=== PATIENT | female | born 1995 | race Caucasian/White ===

== ENCOUNTER 2016-07-13 13:51 | Emergency (ER) | payer OTHER ==
[2016-07-13 14:18] LABS: BILIRUBIN,URINE NEGATIVE (NEGATIVE); PH,URINE 5.5 PH (5.0-7.5)
[2016-07-13 14:25] LABS: UA w/ MICROSCOPIC CHARGE YES
[2016-07-13 14:26] LABS: HCG UR QUAL NEGATIVE
[2016-07-13 14:39] LABS: UR CULTURE IF IND NOT INDICATED; WBC,URINE 0-3 /HPF (0-5)
--- NOTE | 2016-07-13 14:43 | ED Physician Documentation ---
PD HPI FEMALE - Stated complaint Stated Complaint: ABD PX/L SIDE PX - Chief complaint Chief Complaint: Abd Pain - History obtained from History obtained from: Patient - History of Present Illness Timing - onset: How many hours ago (several), Today Timing - duration: Hours Timing - details: Abrupt onset, Still present Associated symptoms: Vaginal discharge (mild c/w what she gets prior to periods. ). No: Fever, Back pain, Vaginal bleeding, Genital sore/lesion, Dysuria, Urinary frequency, Hematuria Contributing factors: Other (10 days late on her period). No: Exposed to STD Similar symptoms before: Has not had sx before Recently seen: Not recently seen Review of Systems Constitutional: denies: Fever, Chills GI: denies: Vomiting, Diarrhea : reports: Discharge (mild, which she says she gets prior to menses but has had it continue since last one. No itching/soreness.), Missed period (10 days late on period). denies: Dysuria, Frequency, Irregular menses (usually regular) PD PAST MEDICAL HISTORY - Past Medical History Past Medical History: No Other Past Medical History: anemia vit D dif,. - Past Surgical History Past Surgical History: No - Present Medications Home Medications: Ambulatory Orders Medication Instructions Recorded Confirmed Naproxen 375 mg PO BID #20 tablet 07/13/16 Tramadol HCl 50 mg PO Q6H PRN #20 tablet 07/13/16 - Allergies Allergies/Adverse Reactions: Allergies Allergy/AdvReac Type Severity Reaction Status Date / Time No Known Drug Allergies Allergy Verified 07/13/16 14:00 - Social History Does the pt smoke?: No Smoking Status: Never smoker PD ED PE NORMAL - Vitals Vital signs reviewed: Yes - General General: Alert and oriented X 3, No acute distress, Well developed/nourished - Cardiac Cardiac: RRR, No murmur - Respiratory Respiratory: Clear bilaterally - Abdomen Abdomen: Normal bowel sounds, Soft, Non distended, No organomegaly, Other ( tender lower left abd/suprapubic area. ) - Female Female : Deferred - Rectal Rectal: Deferred - Back Back: No CVA TTP Results - Vitals Vitals: Vital Signs - 24 hr 07/13/16 07/13/16 13:57 17:18 Temperature 36.4 C L Heart Rate 74 84 Respiratory 18 16 Rate Blood Pressure 132/78 H 112/65 O2 Saturation 100 98 Oxygen O2 Source Room air - Labs Labs: Laboratory Tests 07/13/16 07/13/16 14:00 14:00 Urine Color YELLOW Urine Clarity CLEAR Urine pH 5.5 Ur Specific [place] 1.025 1.025 Urine Protein NEGATIVE Urine Glucose (UA) NEGATIVE Urine Ketones NEGATIVE Urine Occult Blood SMALL H Urine Nitrite NEGATIVE Urine Bilirubin NEGATIVE Urine Urobilinogen 0.2 (NORMAL) Ur Leukocyte Esterase NEGATIVE Urine RBC 0-5 Urine WBC 0-3 Ur Squamous Epith Cells RARE Squamous Urine Bacteria Rare Ur Microscopic Review INDICATED Urine Culture Comments NOT INDICATED Urine HCG, Qual NEGATIVE - Rads (name of study) pelvic U/S Radiology: Prelim report reviewed (complex 5 cm cyst left side with good flow in ovary and mild free fluid. ) left renal U/S Radiology: Prelim report reviewed (normal kidney size; no hydro.) PD MEDICAL DECISION MAKING - ED course Complexity details: reviewed results (complex cyst left ovary 5 cm with slight free fluid. Presume this is cause of the pain. Negative preg test. ), considered differential, d/w patient Departure - Departure Disposition: 01 Home, Self Care Clinical Impression: Complex cyst of left ovary Abdominal pain Qualifiers: Abdominal location: left lower quadrant Qualified Code(s): R10.32 - Left lower quadrant pain Condition: Stable Record reviewed to determine appropriate education?: Yes Instructions: ED Cyst Ovarian Follow-Up: JUAN Zepeda [Provider Group] Prescriptions: Naproxen 375 mg PO BID #20 tablet Tramadol HCl 50 mg PO Q6H PRN #20 tablet PRN Reason: Pain Comments: Drink lots of fluids. Naproxen twice daily for 7-10 days. Add Tylenol and/or Tramadol as needed for pains. Recheck with PCP in about a week, call for an appt. Return sooner if worse pain, fever, vomiting, generalized abdominal pain, significant vaginal bleeding, other concerns. If improved, your provider will likely want to repeat the ultrasound in about 3-4 weeks to evaluate if the cyst has gone away. Discharge Date/Time: 07/13/16 17:40
[2016-07-13] MEDS ORDERED: IBUPROFEN 600 MG TABLET PO ONE (15:04)
[2016-07-13] MEDS ORDERED: ACETAMINOPHEN 325 MG TABLET PO ONE (15:04)
[2016-07-13] MEDS: IBUPROFEN 600 MG TABLET PO STA (15:08)
[2016-07-13] MEDS: ACETAMINOPHEN 325 MG TABLET PO STA (15:08)
--- NOTE | 2016-07-13 17:15 | Ultrasound Preliminary Report ---
Exam: US Pel Non OB w/TV + Dop Ltd IMPRESSION: 1. Mildly complex left ovarian cyst measuring 5.3 cm. Blood flow is seen in the left ovarian parenchy ma. Recommend a 6-8 week follow-up pelvic ultrasound to ensure resolution. 2. Small free fluid in the posterior cul-de-sac. [facility] SITE ID: [id number]
[2016-07-13 17:18] VITALS: BP 112/65
--- NOTE | 2016-07-13 17:18 | Ultrasound Report ---
EXAM: PELVIC ULTRASOUND EXAM DATE: 07/13/2016 04:07 PM. CLINICAL HISTORY: Lower left abdominal pain for few days. COMPARISON: None. TECHNIQUE: Realtime transabdominal pelvic scan performed to identify the uterus and adnexa and as an overview of other pelvic structures, followed by transvaginal scan to provide greater detail of the u terus and adnexa, with static image documentation. FINDINGS: Uterus: 8 x 4.4 x 4.1 cm, volume 75.4 cc. Anteverted position. Normal overall size and echotexture. Masses: None. Endometrium: 7.8 mm. Normal. Cervix: Unremarkable. Right Ovary: 4.3 x 2 x 2.3 cm, volume 10.3 cc. Normal echotexture and blood flow. Left Ovary: 6.4 x 5.4 x 4.7 cm, volume 84.9 cc. Left ovarian cyst measures 5.3 x 3.9 x 4.7 cm. A few internal septations are present and this mildly complex left ovarian cyst. Blood flow is seen in the left ovary by color and spectral Doppler. Free Fluid: Small free fluid in the posterior cul-de-sac Other: None. IMPRESSION: 1. Mildly complex left ovarian cyst measuring 5.3 cm. Blood flow is seen in the left ovarian parpedro luisy ma. Recommend a 6-8 week follow-up pelvic ultrasound to ensure resolution. 2. Small free fluid in the posterior cul-de-sac. [facility] Referring Provider Line: [phone] SITE ID: [id number]
--- NOTE | 2016-07-13 17:39 | Ultrasound Preliminary Report ---
Exam: US Retroperitoneal Limited IMPRESSION: The left kidney appears within normal limits. [facility] SITE ID: [id number]
--- NOTE | 2016-07-13 17:40 | Ultrasound Report ---
EXAM: Retroperitoneal limited ultrasound EXAM DATE: 07/13/2016 04:50 PM. CLINICAL HISTORY: Left abdomen to flank pain for few days. COMPARISON: None. TECHNIQUE: Real-time scanning was performed with static images obtained. FINDINGS: Left Kidney: 11.7 x 4.2 x 4.1 cm. Normal echotexture with no stones, contour-deforming masses, or hyd ronephrosis. Bladder: Bladder is decompressed. IMPRESSION: The left kidney appears within normal limits. [facility] Referring Provider Line: [phone] SITE ID: [id number]
== END 2016-07-13 17:40 | disposition home or self-care (01) ==
LOC: ED 13:51
DX: N83.202 Unspecified ovarian cyst, left side (principal)
CPT/HCPCS: 76775; 76830; 76856; 81001; 81003; 81025; 87086; 93976; 99283; 99284

== ENCOUNTER 2017-01-15 14:15 | Emergency (ER) | payer OTHER ==
--- NOTE | 2017-01-15 14:28 | ED Physician Documentation ---
PD HPI NVD - Stated complaint Stated Complaint: VOMITING/15WKS - History obtained from History obtained from: Patient - History of Present Illness Timing - onset: How many days ago (4-5) Timing - duration: Days (4-5) Timing - details: Gradual onset, Still present Associated symptoms: Other (nausea and vomiting with any PO intake, but no diarrhea. No abd pain noted. Urine is darker. No dysuria. She is 15 weeks . No change in foods nor meds.). No: Fever, Abdominal pain Contributing factors: Travel (2 weeks ago, returned from [place] visiting family.) . No: Sick contact, Bad food Improved by: No: Vomiting, Position Worsened by: Eating. No: Breathing, Position Similar symptoms before: Has not had sx before Recently seen: Not recently seen Review of Systems Constitutional: denies: Fever, Chills Nose: denies: Rhinorrhea / runny nose, Congestion Throat: denies: Sore throat Respiratory: denies: Cough GI: reports: Nausea, Vomiting. denies: Abdominal Pain, Abdominal Swelling, Diarrhea : reports: Now EGA (15 weeks). denies: Dysuria, Frequency, Vaginal bleeding Skin: denies: Rash, Lesions Neurologic: reports: Generalized weakness, Near syncope (lightheaded with standing). denies: Focal weakness, Numbness, Syncope, Altered mental status, Headache Psychiatric: denies: Insomnia Endocrine: reports: Weight gain Immunocompromised: denies: Immunocompromised PD PAST MEDICAL HISTORY - Past Medical History Cardiovascular: None Respiratory: None Neuro: None Endocrine/Autoimmune: None - Past Surgical History Past Surgical History: No - Present Medications Home Medications: Ambulatory Orders Medication Instructions Recorded Confirmed Doxylamine Succinate [[place]] 25 mg PO Q6H PRN #60 tablet 01/15/17 Famotidine [Pepcid] 20 mg PO ONCE #30 tablet 01/15/17 Ondansetron Odt [Zofran] 4 mg TL Q6H PRN #15 tablet 01/15/17 Pnv No.122/Iron/Folic Acid 1 each PO DAILY 01/15/17 01/15/17 [ Multi Tablet] Pyridoxine HCl [Vitamin B-6] 25 mg PO BID #60 tablet 01/15/17 - Allergies Allergies/Adverse Reactions: Allergies Allergy/AdvReac Type Severity Reaction Status Date / Time No Known Drug Allergies Allergy Verified 01/15/17 14:29 - Social History Does the pt smoke?: No Smoking Status: Never smoker PD ED PE NORMAL - Vitals Vital signs reviewed: Yes - General General: Alert and oriented X 3, Well developed/nourished - HEENT HEENT: Ears normal, Pharynx benign. No: Moist mucous membranes (dry and chapped lips) - Neck Neck: Supple, no meningeal sign, No adenopathy - Cardiac Cardiac: RRR, No murmur - Respiratory Respiratory: Clear bilaterally - Abdomen Abdomen: Normal bowel sounds, Soft, Non tender, Non distended, Other (bedside U/ S showing IUP c/w dates, with good heart beat and spontaneous movements. ) - Female Female : Deferred - Rectal Rectal: Deferred - Back Back: No CVA TTP - Derm Derm: Normal color, Warm and dry - Extremities Extremities: No edema, No calf tenderness / cord - Neuro Neuro: Alert and oriented X 3, No motor deficit, Normal speech - Psych Psych: Normal mood Results - Vitals Vitals: Vital Signs - 24 hr 01/15/17 01/15/17 14:25 16:41 Temperature 37.1 C Heart Rate 89 66 Respiratory 18 15 Rate Blood Pressure 126/79 108/65 O2 Saturation 100 100 Oxygen O2 Source Room air - Labs Labs: Laboratory Tests 01/15/17 01/15/17 01/15/17 14:39 15:26 15:26 WBC 12.4 H RBC 3.89 L Hgb 11.6 L Hct 33.0 L MCV 84.9 MCH 29.9 MCHC 35.2 RDW 13.6 Plt Count 217 MPV 7.8 L Neut # 9.5 H Lymph # 1.6 [place] # 1.1 H Eos # 0.1 Baso # 0.0 Absolute Nucleated RBC 0.01 Nucleated RBCs 0.1 Sodium 136 Potassium 3.7 Chloride 108 Carbon Dioxide 22 Anion Gap 6.0 BUN 8 Creatinine 0.5 Estimated GFR (MDRD) 157 Glucose 91 Calcium 9.1 Magnesium 1.7 Total Bilirubin 0.5 AST 18 ALT 19 Alkaline Phosphatase 53 Total Protein 7.1 Albumin 3.3 Globulin 3.8 Albumin/Globulin Ratio 0.9 L Lipase 30 Urine Color YELLOW Urine Clarity CLEAR Urine pH 6.5 Ur Specific [place] <=1.005 Urine Protein NEGATIVE Urine Glucose (UA) NEGATIVE Urine Ketones NEGATIVE Urine Occult Blood NEGATIVE Urine Nitrite NEGATIVE Urine Bilirubin NEGATIVE Urine Urobilinogen 0.2 (NORMAL) Ur Leukocyte Esterase NEGATIVE Ur Microscopic Review NOT INDICATED Urine Culture Comments NOT INDICATED PD MEDICAL DECISION MAKING - ED course Complexity details: re-evaluated patient (feeling much better with IV fluids and meds. Otherwise looks okay without abd pain nor tenderness. Does not seem appendix, gallbladder, gastritis. Presume related. ), considered differential, d/w patient Departure - Departure Disposition: 01 Home, Self Care Clinical Impression: Dehydration, Hyperemesis arising during Condition: Stable Record reviewed to determine appropriate education?: Yes Instructions: ED Preg Morning Sickness, ED Nausea Vomiting Follow-Up: Ledy Reveles ARNP [Primary Care Provider] - Prescriptions: Famotidine [Pepcid] 20 mg PO ONCE #30 tablet Pyridoxine HCl [Vitamin B-6] 25 mg PO BID #60 tablet Doxylamine Succinate [[place]] 25 mg PO Q6H PRN #60 tablet PRN Reason: Nausea / Vomiting Ondansetron Odt [Zofran] 4 mg TL Q6H PRN #15 tablet PRN Reason: Nausea / Vomiting Comments: Small frequent fluids and bland food initially. For the nausea, take vitamin B6 twice daily for the next several weeks. Add doxylamine as needed for nausea. Alternatively if that is not effective can use ondansetron dissolving tablet. With the vomiting for several days that you have had, your stomach is likely irritated and I would take famotidine daily for the next several weeks as well. Follow-up with your primary care in the next few days if not improved. Your blood test and urine tests are looking okay so presume this is just related at this point.
[2017-01-15] MEDS ORDERED: FAMOTIDINE 20 MG/50 ML 50 ML IV ONE ×2 (14:49→15:03)
[2017-01-15] MEDS ORDERED: ONDANSETRON 4 MG/2 ML VIAL IVP STA (14:49)
[2017-01-15] MEDS ORDERED: SODIUM CHLORIDE 0.9% 1,000 ML IV ONE ×2 (14:49)
[2017-01-15 14:54] LABS: BILIRUBIN,URINE NEGATIVE (NEGATIVE); PH,URINE 6.5 PH (5.0-7.5)
[2017-01-15 14:55] LABS: UA CHARGE (STRIP ONLY) YES; UR CULTURE IF IND NOT INDICATED
[2017-01-15] MEDS ORDERED: ONDANSETRON 4 MG/2 ML VIAL ONE (15:03)
[2017-01-15 15:37] LABS: BASOPHILS % (AUTO) 0.4 %; EOSINOPHILS # (AUTO) 0.1 10^3/uL (0.0-0.7); EOSINOPHILS % (AUTO) 0.6 %; HGB - HEMOGLOBIN 11.6 g/dL (12.0-16.0); LYMPHOCYTES # (AUTO) 1.6 10^3/uL (1.5-3.5); LYMPHOCYTES % (AUTO) 13.2 %; MEAN CORPUSCULAR HEMOGLOBIN 29.9 pg (27.0-31.0); MEAN CORPUSCULAR HGB CONC 35.2 g/dL (32.0-36.0); MEAN CORPUSCULAR VOLUME 84.9 fL (81.0-99.0); MEAN PLATELET VOLUME 7.8 fL (7.9-10.8); MONOCYTES # (AUTO) 1.1 10^3/uL (0.0-1.0); MONOCYTES % (AUTO) 8.9 %; NEUTROPHILS # (AUTO) 9.5 10^3/uL (1.5-6.6); NEUTROPHILS % (AUTO) 76.9 %; NUCLEATED RED BLOOD CELLS AUTO 0.1 /100WBC; RED BLOOD COUNT 3.89 10^6/uL (4.20-5.40); RED CELL DISTRIBUTION WIDTH 13.6 % (12.0-15.0); UNCORRECTED WHITE BLOOD COUNT 12.4 x10^3/uL; WHITE BLOOD COUNT 12.4 x10^3/uL (4.8-10.8)
[2017-01-15 15:47] LABS: ALBUMIN/GLOBULIN RATIO 0.9 (1.0-2.2); BILIRUBIN,TOTAL 0.5 mg/dL (0.2-1.0); CALCIUM 9.1 mg/dL (8.5-10.3); CREATININE 0.5 mg/dL (0.4-1.0); MAGNESIUM 1.7 mg/dL (1.7-2.8); POTASSIUM 3.7 mmol/L (3.5-5.0); TOTAL PROTEIN 7.1 g/dL (6.7-8.2)
[2017-01-15 16:42] VITALS: BP 108/65
== END 2017-01-15 17:09 | disposition home or self-care (01) ==
LOC: ED 14:15
DX: O21.1 Hyperemesis gravidarum with metabolic disturbance (principal); Z3A.15 15 weeks gestation of pregnancy
CPT/HCPCS: 36415; 80053; 81001; 81003; 83690; 83735; 85025; 87086; 96365; 96375; 99283

== ENCOUNTER 2017-05-03 20:45 | Outpatient (CLI) | payer OTHER ==
[2017-05-03 21:02] VITALS: BP 122/85
[2017-05-03 22:00] LABS: BILIRUBIN,URINE NEGATIVE (NEGATIVE)
[2017-05-03 22:02] LABS: UA CHARGE (STRIP ONLY) YES; UR CULTURE IF IND NOT INDICATED
== END 2017-05-03 22:12 | disposition home or self-care (01) ==
LOC: WFO 20:45 → FBP 20:49 → WFO 22:12
PROVIDERS: ATTEND Obstetrics & Gynecology
DX: Z34.03 Encounter for supervision of normal first pregnancy, third trimester (principal)
CPT/HCPCS: 81001; 81003; 87086; 99214

== ENCOUNTER 2017-06-28 22:14 | Outpatient (CLI) | payer OTHER ==
[2017-06-28 22:22] VITALS: BP 138/71
== END 2017-06-29 00:25 | disposition home or self-care (01) ==
LOC: WFO 22:14 → FBP 22:15 → WFO 06-29 00:25
PROVIDERS: ATTEND Obstetrics & Gynecology
DX: Z34.03 Encounter for supervision of normal first pregnancy, third trimester (principal); Z3A.38 38 weeks gestation of pregnancy
CPT/HCPCS: 99213

== ENCOUNTER 2017-06-29 22:02 | Outpatient (CLI) | payer OTHER ==
[2017-06-29 22:48] VITALS: BP 127/75
== END 2017-06-29 23:30 | disposition home or self-care (01) ==
LOC: WFO 22:02 → FBP 22:03 → WFO 23:30
PROVIDERS: ATTEND Obstetrics & Gynecology
DX: Z34.03 Encounter for supervision of normal first pregnancy, third trimester (principal); Z3A.38 38 weeks gestation of pregnancy
CPT/HCPCS: 99213

== ENCOUNTER 2017-08-11 18:02 | Emergency (ER) | payer OTHER ==
[2017-08-11 18:10] VITALS: BP 112/69
[2017-08-11] MEDS ORDERED: PENICILLIN VK 250 MG TABLET PO STA (19:48)
[2017-08-11] MEDS ORDERED: IBUPROFEN 600 MG TABLET PO STA (19:48)
--- NOTE | 2017-08-11 19:49 | ED Physician Documentation ---
PD HPI URI - Stated complaint Stated Complaint: FEVER - Chief complaint Chief Complaint: Resp - History obtained from History obtained from: Patient - History of Present Illness Timing - onset: Yesterday (Sore throat and headache since yesterday with high fevers today. No cough or runny nose.) Review of Systems Constitutional: reports: Fever, Chills, Myalgias, Fatigue Ears: denies: Ear pain Nose: denies: Rhinorrhea / runny nose, Congestion Throat: reports: Sore throat Respiratory: denies: Cough GI: denies: Vomiting, Constipation PD PAST MEDICAL HISTORY - Past Medical History Past Medical History: No Cardiovascular: None Respiratory: None Neuro: None Endocrine/Autoimmune: None GI: None [employer] MANAGER: None : None HEENT: None Psych: None Musculoskeletal: None Derm: None - Past Surgical History Past Surgical History: No - Present Medications Home Medications: Ambulatory Orders Medication Instructions Recorded Confirmed Pnv No.122/Iron/Folic Acid 1 each PO DAILY 01/15/17 08/11/17 [ Multi Tablet] Penicillin V Potassium 500 mg PO QID #40 tablet 08/11/17 - Allergies Allergies/Adverse Reactions: Allergies Allergy/AdvReac Type Severity Reaction Status Date / Time No Known Drug Allergies Allergy Verified 08/11/17 18:10 - Social History Does the pt smoke?: No Smoking Status: Never smoker Does the pt drink ETOH?: No Does the pt have substance abuse?: No - Immunizations Immunizations are current?: Yes - POLST Patient has POLST: No PD ED PE NORMAL - Vitals Vital signs reviewed: Yes - General General: Alert and oriented X 3, No acute distress - HEENT HEENT: Other (Red tonsils with anterior adenopathy but no exudates.) - Neck Neck: Supple, no meningeal sign - Cardiac Cardiac: RRR, No murmur - Respiratory Respiratory: No respiratory distress, Clear bilaterally - Abdomen Abdomen: Non tender - Derm Derm: No rash - Neuro Neuro: Alert and oriented X 3, Normal speech Results - Vitals Vitals: Vital Signs - 24 hr 08/11/17 08/11/17 18:08 19:26 Temperature 37.2 C Heart Rate 106 H Respiratory 16 16 Rate Blood Pressure 112/69 O2 Saturation 98 Oxygen O2 Source Room air - Labs Labs: Laboratory Tests 08/11/17 08/11/17 19:15 19:15 Influenza A (Rapid) Negative Influenza B (Rapid) Negative Influenza Types A,B Ag - Group A Strep Rapid POSITIVE H Departure - Departure Disposition: 01 Home, Self Care Clinical Impression: Strep pharyngitis Condition: Good Record reviewed to determine appropriate education?: Yes Instructions: ED Strep Pharyngitis Conf Prescriptions: Penicillin V Potassium 500 mg PO QID #40 tablet Comments: Follow-up with your doctor in 1 week. Return if worse. Tylenol or ibuprofen as needed for pain.
== END 2017-08-11 19:58 | disposition home or self-care (01) ==
LOC: ED 18:02
DX: J02.0 Streptococcal pharyngitis (principal)
CPT/HCPCS: 87275; 87276; 87430; 99283; A9270